=== PATIENT | male | born 1975 | race Caucasian/White ===

== ENCOUNTER 2019-11-27 14:53 | Outpatient (CLI) | payer MEDICARE, SELFPAY | END 2019-11-27 14:54 | disposition home or self-care (01) | LOC: RADWPI 11-28 16:23 | PROVIDERS: PCP Physician Assistant; Visit Provider Specialist | DX: G40.909 Epilepsy, unspecified, not intractable, without status epilepticus (principal); M43.06 Spondylolysis, lumbar region; M51.16 Intervertebral disc disorders with radiculopathy, lumbar region; M54.5 Low back pain; F17.210 Nicotine dependence, cigarettes, uncomplicated | CPT/HCPCS: 95972; 99214 ==

== ENCOUNTER → 2019-12-05 11:15 | Outpatient (BNVA) | payer MEDICARE, SELFPAY | PROVIDERS: PCP Physician Assistant; Visit Provider Psychiatry & Neurology Neurology | DX: G62.9 Polyneuropathy, unspecified (principal); M79.604 Pain in right leg; M79.605 Pain in left leg | CPT/HCPCS: 95886; 95909 ==

== ENCOUNTER 2019-12-12 09:11 | Outpatient (CLI) | payer MEDICARE, SELFPAY ==
--- NOTE | 2019-12-12 09:28 | CT_ITS ---
WS: [id number] CT THORACIC SPINE MYELOGRAM TECHNIQUE: Contrast-enhanced CT of the thoracic spine with coronal and sagittal reformatted images. CLINICAL INFORMATION: Lumbar disc disease with radiculopathy COMPARISON: None. DLP: 1204.[address] scans at [facility] use at least one of these dose optimization techniques: automat ed exposure control; mA and/or kV adjustment per patient size (includes targeted exams where dose is matched to clinical indication); or iterative reconstruction. FINDINGS: Mild thoracic curve convex left. No acute compression fractures. Hypertrophic changes anterior thorac ic spine. Disc space heights and vertebral body heights relatively well-preserved. Mild spondylitic c hanges thoracic spine. Mild chronic anterior wedging at T12. Mild bony foraminal narrowing more prominent at left T3-4, left T5-6, left T6-T7, bilateral T7-8, bilateral T8-9, bilateral T10-11 Tiny shallow central protrusions most prominent at T6-7, T7-8, T8-9, T10-11, and T11-12. Moderate central canal stenosis at T10-11 with a tiny central protrusion in combination with facet ar thropathy and ligamentum flavum hypertrophy. Mild central canal stenosis T8-T9 with a right pericentral protrusion in combination with facet arthr opathy. Mild central canal stenosis T11-12 mainly due to left eccentric facet arthropathy and ligamen t flavum hypertrophy. CT/CT thoracic spine w con [id number] IMPRESSION: 1. Mild lumbar curve convex left. Disc space heights vertebral body heights we ll-preserved. 2. Mild chronic anterior wedging at T12. 3. Moderate central canal stenosis at T10-11 due to tiny central protrusion wi th prominent facet arthropathy ligament flavum hypertrophy. 4. Otherwise mild central canal stenosis more prominent at T8-9 with a right p ericentral protrusion and prominent facet arthropathy and T11-12 mainly due to facet arthropathy with ligament flavum hypertrophy. 5. Mild bony foraminal narrowing worse at bilateral T10-11
--- NOTE | 2019-12-12 09:28 | CT_ITS ---
WS: [id number] CT LUMBAR SPINE MYELOGRAM TECHNIQUE: Contrast-enhanced CT of the lumbar spine with coronal and sagittal reformatted images. CLINICAL INFORMATION: Lumbar disc COMPARISON: None. DLP: 1474.[address] scans at [facility] use at least one of these dose optimization techniques: automat ed exposure control; mA and/or kV adjustment per patient size (includes targeted exams where dose is matched to clinical indication); or iterative reconstruction. FINDINGS: Normal lumbar alignment. No acute compression. Mild hypertrophic changes lumbar spine. Mild disc bulg ing L3-L4 and L4-L5. L1-L2: Normal. L2-L3: No significant disc bulging. Mild facet arthropathy. Spinal canal and foramen are patent. L3-L4: Small broad-based central protrusion with mild central canal stenosis. Foramen are patent. Mil d facet arthropathy. L4-L5: Shallow central disc protrusion with mild central canal stenosis and narrowing of the subartic ular recess bilaterally. Mild facet arthropathy. Mild right foraminal narrowing. L5-S1: Shallow central protrusion with slight effacement of ventral thecal sac. Spinal canal and fora men are patent. Adrenal glands are normal. Normal caliber abdominal aorta. CT/CT lumbar spine w con [id number] IMPRESSION: 1. Normal lumbar alignment. No acute compression. No high-grade central canal stenosis. 2. Shallow central protrusion L4-5 with narrowing of the subarticular recess b ilaterally with mild central canal stenosis. Mild right L4-5 foraminal narrowin g. 3. Shallow central protrusion L5-S1 with slight encroachment traversing right S1 nerve root. 4. Broad-based central protrusion L3-4 with mild central canal stenosis.
--- NOTE | 2019-12-12 09:29 | IR_ITS ---
WS: [id number] MYELOGRAM THORACIC AND LUMBAR SPINE Fluoroscopic guided cervical myelogram CLINICAL INFORMATION: LUMBAR SPONDYLOLYSIS COMPARISON: None. TECHNIQUE: The procedure, including risks, benefits, and complications, were discussed with the patie nt who agreed to proceed. A timeout was performed to confirm correct patient, procedure, and site. Using sterile technique, the patient was prepped and draped in the usual sterile fashion. After admin istration of local anesthesia using 1% preservative-free lidocaine and using fluoroscopic guidance, a 22-gauge 5 inch spinal needle was advanced into the subarachnoid space at L5-S1 level. Subsequently 13 cc of Omnipaque 240 was administered into the thecal sac. The needle was removed and hemostasis wa s achieved. Subsequently the table was tilted down and contrast flowed freely into the thoracic spine . Spot fluoroscopic images were obtained. FLUOROSCOPIC TIME: 1.1 minutes. Partially visualized vagal nerve stimulator. Normal lumbar alignment on the neutral view. No instabil ity on flexion-extension. Mild chronic anterior wedging at T12. Please see CT myelogram report for additional detail. IR/IR myelogram spine thorac/lumb IMPRESSION: 1. Uncomplicated lumbar and thoracic myelogram. 2. Please see CT myelogram report for anatomic detail.
[2019-12-12] MEDS: iohexol 240 mg/mL 50 mL Btl INTRATHECA (10:38)
== END 2019-12-12 09:12 | disposition home or self-care (01) ==
PROVIDERS: PCP Physician Assistant; Visit Provider Specialist
DX: M47.896 Other spondylosis, lumbar region (principal); M48.04 Spinal stenosis, thoracic region; M51.16 Intervertebral disc disorders with radiculopathy, lumbar region; M51.26 Other intervertebral disc displacement, lumbar region
CPT/HCPCS: 62305; 72120; 72129; 72132; J2001

== ENCOUNTER → 2019-12-17 10:20 | Outpatient (BNVA) | payer MEDICARE, SELFPAY | PROVIDERS: PCP Physician Assistant; Referring Provider Specialist; Visit Provider Anesthesiology Pain Medicine | DX: M54.16 Radiculopathy, lumbar region (principal); M51.36 Other intervertebral disc degeneration, lumbar region; F17.210 Nicotine dependence, cigarettes, uncomplicated | CPT/HCPCS: 99203; 99999 ==

== ENCOUNTER 2019-12-25 10:34 | Outpatient (RCR) | payer MEDICARE, SELFPAY | END 2020-01-03 23:00 | disposition home or self-care (01) | LOC: SPT 10:34 | PROVIDERS: PCP Physician Assistant; Referring Provider Family Medicine; Visit Provider Family Medicine | DX: M54.10 Radiculopathy, site unspecified (principal) | CPT/HCPCS: 97110; 97161 ==

== ENCOUNTER 2019-12-25 12:00 | Outpatient (CLI) | payer MEDICARE, SELFPAY | END 2019-12-25 12:01 | disposition home or self-care (01) | LOC: SLEEP 12-26 10:17 | PROVIDERS: PCP Physician Assistant; Visit Provider Physician Assistant | DX: G47.10 Hypersomnia, unspecified (principal) | CPT/HCPCS: G0399 ==

== ENCOUNTER → 2019-12-31 13:10 | Outpatient (BNVA) | payer MEDICARE, SELFPAY | PROVIDERS: PCP Physician Assistant; Visit Provider Anesthesiology Pain Medicine | DX: M51.16 Intervertebral disc disorders with radiculopathy, lumbar region (principal); F17.210 Nicotine dependence, cigarettes, uncomplicated | CPT/HCPCS: 64483; 64484; J1040; J2001; J3490 ==

== ENCOUNTER → 2020-01-14 08:38 | Outpatient (BNVA) | payer MEDICARE, SELFPAY | PROVIDERS: PCP Physician Assistant; Visit Provider Anesthesiology Pain Medicine | DX: M54.16 Radiculopathy, lumbar region (principal); M51.36 Other intervertebral disc degeneration, lumbar region; F17.210 Nicotine dependence, cigarettes, uncomplicated | CPT/HCPCS: 99213 ==

== ENCOUNTER → 2020-02-14 08:56 | Outpatient (BNVA) | payer MEDICARE, SELFPAY | PROVIDERS: PCP Physician Assistant; Visit Provider Anesthesiology Pain Medicine | DX: M51.36 Other intervertebral disc degeneration, lumbar region (principal); M51.16 Intervertebral disc disorders with radiculopathy, lumbar region; M54.9 Dorsalgia, unspecified; F17.210 Nicotine dependence, cigarettes, uncomplicated | CPT/HCPCS: 64483; 64484; J1040; J2001; J3490 ==

== ENCOUNTER → 2020-02-28 10:16 | Outpatient (BNVA) | payer MEDICARE, SELFPAY | PROVIDERS: PCP Physician Assistant; Visit Provider Anesthesiology Pain Medicine | DX: M54.16 Radiculopathy, lumbar region (principal); M51.36 Other intervertebral disc degeneration, lumbar region; M54.9 Dorsalgia, unspecified; M79.652 Pain in left thigh; F17.210 Nicotine dependence, cigarettes, uncomplicated | CPT/HCPCS: 99213 ==

== ENCOUNTER → 2020-04-29 08:59 | Outpatient (BNVA) | payer MEDICARE, SELFPAY | PROVIDERS: PCP Physician Assistant; Visit Provider Specialist | DX: G40.909 Epilepsy, unspecified, not intractable, without status epilepticus (principal); M51.36 Other intervertebral disc degeneration, lumbar region | CPT/HCPCS: 99214 ==

== ENCOUNTER 2020-05-05 10:15 | Outpatient (CLI) | payer MEDICARE, SELFPAY ==
--- NOTE | 2020-05-05 10:21 | XR_ITS ---
WS: [id number] SOFT TISSUE NECK 2 VIEW(S) TECHNIQUE: AP and lateral views of the neck in soft tissue technique are performed. HISTORY: VNS components COMPARISON: 11/16/2017 Significant motion artifact. Vagal nerve stimulator wires project over the inferior LEFT lateral soft tissues of the neck. No change in position. Lead wires are intact. No soft tissue ovale. XR/XR soft tissue neck [id number] IMPRESSION: No change in appearance of the vagal nerve stimulator electrodes over the infer ior LEFT neck.
--- NOTE | 2020-05-05 10:21 | XR_ITS ---
WS: [id number] CHEST 2 VIEWS HISTORY: VNS components COMPARISON: 09/25/2018 Lungs: Clear with no abnormality. No pleural effusion or pneumothorax. Cardiac size: Normal. Mediastinum/Aorta: Normal mediastinum. Bones: Normal. Vagal nerve stimulator projects over the mid LEFT thorax with wires extending towards the LEFT neck. XR/XR chest 2V* [id number] IMPRESSION: No change in position or appearance of the vagal nerve stimulator.
== END 2020-05-05 10:16 | disposition home or self-care (01) ==
LOC: RAD 10:19
PROVIDERS: PCP Physician Assistant; Visit Provider Licensed Practical Nurse
DX: Z96.89 Presence of other specified functional implants (principal)
CPT/HCPCS: 70360; 71046

== ENCOUNTER → 2020-05-12 09:58 | Outpatient (BNVA) | payer MEDICARE, SELFPAY | PROVIDERS: PCP Physician Assistant; Visit Provider Anesthesiology Pain Medicine | DX: M54.16 Radiculopathy, lumbar region (principal); M54.9 Dorsalgia, unspecified; M51.36 Other intervertebral disc degeneration, lumbar region; M79.604 Pain in right leg; M79.605 Pain in left leg; F17.210 Nicotine dependence, cigarettes, uncomplicated | CPT/HCPCS: 99213 ==

== ENCOUNTER → 2020-05-21 13:46 | Outpatient (BNVA) | payer MEDICARE, SELFPAY | PROVIDERS: PCP Physician Assistant; Visit Provider Anesthesiology Pain Medicine | DX: M54.16 Radiculopathy, lumbar region (principal); M51.36 Other intervertebral disc degeneration, lumbar region; M54.9 Dorsalgia, unspecified; F17.210 Nicotine dependence, cigarettes, uncomplicated | CPT/HCPCS: 64483; 64484; J1040; J3490 ==

== ENCOUNTER → 2020-06-05 09:40 | Outpatient (BNVA) | payer MEDICARE, SELFPAY | PROVIDERS: PCP Physician Assistant; Visit Provider Anesthesiology Pain Medicine | DX: M51.36 Other intervertebral disc degeneration, lumbar region (principal); M54.16 Radiculopathy, lumbar region; M54.9 Dorsalgia, unspecified; M79.605 Pain in left leg; M79.604 Pain in right leg; F17.210 Nicotine dependence, cigarettes, uncomplicated; Z79.891 Long term (current) use of opiate analgesic | CPT/HCPCS: 99213 ==

== ENCOUNTER → 2020-08-18 08:58 | Outpatient (BNVA) | payer MEDICARE, SELFPAY | PROVIDERS: PCP Physician Assistant; Visit Provider Anesthesiology Pain Medicine | DX: M54.16 Radiculopathy, lumbar region (principal); M51.36 Other intervertebral disc degeneration, lumbar region; M54.9 Dorsalgia, unspecified; F17.210 Nicotine dependence, cigarettes, uncomplicated | CPT/HCPCS: 99213; 99214 ==

== ENCOUNTER → 2020-08-25 12:44 | Outpatient (BNVA) | payer MEDICARE, SELFPAY | PROVIDERS: PCP Physician Assistant; Visit Provider Anesthesiology Pain Medicine | DX: M54.16 Radiculopathy, lumbar region (principal); M54.9 Dorsalgia, unspecified; F17.210 Nicotine dependence, cigarettes, uncomplicated | CPT/HCPCS: 64483; 64484; J1100; J3490 ==

== ENCOUNTER → 2020-09-09 10:22 | Outpatient (BNVA) | payer MEDICARE, SELFPAY | PROVIDERS: PCP Physician Assistant; Visit Provider Anesthesiology Pain Medicine | DX: M79.605 Pain in left leg (principal); M51.36 Other intervertebral disc degeneration, lumbar region; M54.16 Radiculopathy, lumbar region; M54.9 Dorsalgia, unspecified; F17.210 Nicotine dependence, cigarettes, uncomplicated | CPT/HCPCS: 99213 ==

== ENCOUNTER → 2020-11-05 08:06 | Outpatient (BNVA) | payer MEDICARE, SELFPAY | PROVIDERS: PCP Physician Assistant; Visit Provider Specialist | DX: G40.109 Localization-related (focal) (partial) symptomatic epilepsy and epileptic syndromes with simple partial seizures, not intractable, without status epilepticus (principal); G40.909 Epilepsy, unspecified, not intractable, without status epilepticus; Z96.89 Presence of other specified functional implants; M51.16 Intervertebral disc disorders with radiculopathy, lumbar region; F17.210 Nicotine dependence, cigarettes, uncomplicated | CPT/HCPCS: 95971; 99213 ==

== ENCOUNTER → 2021-02-10 08:58 | Outpatient (BNVA) | payer MEDICARE, SELFPAY | PROVIDERS: PCP Physician Assistant; Visit Provider Anesthesiology Pain Medicine | DX: G89.29 Other chronic pain (principal); M54.42 Lumbago with sciatica, left side; M51.36 Other intervertebral disc degeneration, lumbar region; M54.16 Radiculopathy, lumbar region; M54.9 Dorsalgia, unspecified; F17.210 Nicotine dependence, cigarettes, uncomplicated | CPT/HCPCS: 99214 ==

== ENCOUNTER → 2021-04-28 07:50 | Outpatient (BNVA) | payer MEDICARE, SELFPAY | PROVIDERS: PCP Physician Assistant; Visit Provider Specialist | DX: G40.119 Localization-related (focal) (partial) symptomatic epilepsy and epileptic syndromes with simple partial seizures, intractable, without status epilepticus (principal); G40.319 Generalized idiopathic epilepsy and epileptic syndromes, intractable, without status epilepticus; M51.16 Intervertebral disc disorders with radiculopathy, lumbar region; Z96.82 Presence of neurostimulator; F17.210 Nicotine dependence, cigarettes, uncomplicated | CPT/HCPCS: 95971; 99214 ==

== ENCOUNTER 2021-04-28 09:35 | Outpatient (CLI) | payer MEDICARE, SELFPAY ==
--- NOTE | 2021-04-28 09:45 | XRR_ITS ---
PROCEDURE INFORMATION: Exam: XR Cervical Spine Exam date and time: 04/28/2021 9:45 AM Age: 45 years old Clinical indication: Pain; Cervicalgia; Additional info: M54.2 - cervicalgia TECHNIQUE: Imaging protocol: XR of the cervical spine. Views: 2 or 3 views. COMPARISON: CR Cervical Spine AP/Lat* [id number] 09/08/2015 11:28 AM FINDINGS: Bones/joints: Mild dextrocurvature of the cervical spine is present. There is slight straightening of the normal cervical lordosis, without listhesis. No fracture seen. Vertebral body heights are well maintained. There is multilevel degenerative changes, manifested by intervertebral disc space narrowing, endplate osteophytes and facet joint arthrosis. Soft tissues: Electrodes project over the left lower neck. XR/XR cervical spine 3V* [id number] IMPRESSION: Degenerative changes of the cervical spine.
== END 2021-04-28 09:36 | disposition home or self-care (01) ==
LOC: RAD 09:42
PROVIDERS: PCP Physician Assistant; Visit Provider Specialist
DX: M54.2 Cervicalgia (principal); R56.9 Unspecified convulsions
CPT/HCPCS: 36415; 72040; 80175; 87635

== ENCOUNTER 2021-05-04 08:12 | Day surgery (SDC) | payer MEDICARE, SELFPAY ==
[2021-05-01 07:57] VITALS: BMI 35.1
--- NOTE | 2021-05-04 08:31 | ANES.PREANE2 ---
Pre-Anesthetic Assessment Pre-Anesthetic Assessment: Height/Weight: Height 1.85 m Weight 120.656 kg Preop Diagnosis: polyps Proposed Procedure: Operation Date: 05/04/21 09:15 Proposed Procedures p Colonoscopy G0105 Z86.010(Not Applicable) - Sherwin Chin MD Familial anesthetic complications: none Was Beta Marla taken within 24 hours: N/A Was Clonidine taken within 24 hours: N/A Last intake: > 8 hrs Social: Social History: Tobacco and No alcohol Exam: Pre-Anes Outpt Exam: alert, oriented x 3, clear to auscultation bilaterally and regular rate & rhythm Airway: Cervical ROM: WNL MP: 2 Dentition: Chipped and Other (missing) Metabolic: Metabolic: DM Musc/skel: Musc/skel: Lower Back Pain Neuropsych: Neuropsych: Seizure Comments: VNS implant for eplilepsy - last seizure 2 days ago - most are abscence seizures Anesthetic Plan: ASA status: 3 Anesthesia: MAC Risk of > 500 ml blood loss (7ml/kg in children): No PFSH Anesthesia PFSH: Medical History Degenerative lumbar disc Partial epilepsy secondarily generalized Surgical History History of brain surgery partial temporal lobectomy, right side Status post placement of VNS (vagus nerve stimulation) device Family History Mother CAD (coronary artery disease) Sister Cancer Grandfather Cancer Family/Other Cancer Father Diabetes Hypertension Social History Smoking and tobacco status: current every day smoker cigarettes Packs smoked per day: 1 [ Other cigarette details: DOWN FROM 2PPD - DUE TO DECREASED PAIN PER PATIENT REPORT ] Alcohol intake: never Household members: spouse Marital status: Current occupational status: disabled History of recent travel: No Data Anesthesia Cardiac Studies: No Data to Display
[2021-05-04 09:05] VITALS: BP 129/75; PULSE 78; RESP 18; TEMP 36.4; O2SAT 97
--- NOTE | 2021-05-04 09:17 | P.HP_ITS ---
Same Day Surgery H&P Indication for Procedure/HPI DATE OF PROCEDURE: May 04, 2021 CHIEF COMPLAINT/INDICATIONFOR SURGICAL PROCEDURE: Family history of colon cancer PREOP DIAGNOSIS: FH PLANNED PROCEDRUE: Operation Date: 05/04/21 09:15 Proposed Procedures p Colonoscopy G0105 Z86.010(Not Applicable) - Sherwin Chin MD Medications/Allergies* Home Medications Medication Instructions Recorded Confirmed Type pravastatin 80 mg tablet 80 mg PO DAILY 11/27/19 05/04/21 History venlafaxine 150 mg 150 mg PO DAILY 11/27/19 05/04/21 History capsule,extended release 24 hr acetaminophen 650 mg 650 mg PO Q8H 08/18/20 05/04/21 History tablet,extended release venlafaxine 37.5 mg tablet 37.5 mg PO BID 09/09/20 05/04/21 History levetiracetam 500 mg tablet 500 mg PO BID 02/10/21 05/04/21 History cyanocobalamin (vitamin B-12) 1,000 mcg PO DAILY 04/15/21 05/04/21 History 1,000 mcg capsule cholecalciferol (vitamin D3) 1,250 1,250 mcg PO .weekly cap 04/28/21 05/04/21 History mcg (50,000 unit) capsule Allergies/Adverse Reactions Allergy/AdvReac Type Severity Reaction Status Date / Time No Known Allergies Allergy Verified 04/28/21 08:08 Pertinent History/Comorbid Conditions* Medical History (Updated 04/15/21 @ 14:47 by Sherwin Chin MD) Degenerative lumbar disc Partial epilepsy secondarily generalized Surgical History (Updated 11/05/20 @ 09:28 by Carline Shin MD) History of brain surgery partial temporal lobectomy, right side Status post placement of VNS (vagus nerve stimulation) device Family History (Updated 05/05/20 @ 09:11 by Jackelyn Cannon LPN) Diabetes Father CAD (coronary artery disease) Mother Cancer Sister Grandfather Family/Other Hypertension Father Social History Smoking and tobacco status: current every day smoker cigarettes Packs smoked per day: 1 [ Other cigarette details: DOWN FROM 2PPD - DUE TO DECREASED PAIN PER PATIENT REPORT ] Alcohol intake: never Household members: spouse Marital status: Current occupational status: disabled History of recent travel: No Pertinent Exam Findings alert, oriented x 3, clear to auscultation bilaterally, regular rate & rhythm, operative site marked and procedure specific exam findings Recommendations Surgery/Procedure today Coding Level of Care Code Acute 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
[2021-05-04] MEDS: sodium chloride 0.9% 1,000 ML 30 ML IV (09:29)
[2021-05-04 09:32] LABS: Glucose Point of Care 86 mg/dL (70-110)
[2021-05-04 10:02] VITALS: BP 89/51; PULSE 60; RESP 16; TEMP 36.1; O2SAT 97
--- NOTE | 2021-05-04 10:07 | ANE.PACU2 ---
Inpatient post-anesthesia follow up: Airway intact: Yes Vital signs: Temperature 97.6 F Pulse Rate 78 Respiratory Rate 18 Blood Pressure 129/75 Pulse Oximetry 97 Oxygen Delivery Me thod Room Air Oxygen Flow Rate Fraction of Inspir ed Oxygen Hydration adequate: Yes Nausea and vomiting: No Pain level: 1 Mental status: Baseline
== END 2021-05-04 10:50 | disposition home or self-care (01) ==
PROVIDERS: PCP Physician Assistant; Visit Provider Internal Medicine
PROC: 0DJD8ZZ Inspection of Lower Intestinal Tract, Via Natural or Artificial Opening Endoscopic (ICD-10-PCS; CPT 45378; principal; 2021-05-04 09:15)
DX: Z86.010 Personal history of colon polyps (principal); F17.210 Nicotine dependence, cigarettes, uncomplicated; E11.9 Type 2 diabetes mellitus without complications
CPT/HCPCS: 36416; 45378; 82962; 96360; J2704; J7030

== ENCOUNTER → 2021-08-04 08:24 | Outpatient (BNVA) | payer MEDICARE, SELFPAY | PROVIDERS: PCP Physician Assistant; Visit Provider Psychiatry & Neurology Psychiatry | DX: F33.2 Major depressive disorder, recurrent severe without psychotic features (principal); F41.1 Generalized anxiety disorder | CPT/HCPCS: 80053; 84443; 85025; 99204 ==

== ENCOUNTER → 2021-09-15 12:18 | Outpatient (BNVA) | payer MEDICARE, SELFPAY | PROVIDERS: PCP Physician Assistant; Visit Provider Psychiatry & Neurology Psychiatry | DX: F33.2 Major depressive disorder, recurrent severe without psychotic features (principal); F41.1 Generalized anxiety disorder | CPT/HCPCS: 99214 ==

== ENCOUNTER → 2022-06-01 14:53 | Outpatient (BNVA) | payer MEDICARE, SELFPAY | PROVIDERS: PCP Physician Assistant; Visit Provider Specialist | DX: R26.81 Unsteadiness on feet (principal); Z96.82 Presence of neurostimulator; G40.109 Localization-related (focal) (partial) symptomatic epilepsy and epileptic syndromes with simple partial seizures, not intractable, without status epilepticus | CPT/HCPCS: 99214 ==

== ENCOUNTER → 2022-09-13 08:04 | Outpatient (BNVA) | payer MEDICARE, SELFPAY | PROVIDERS: PCP Physician Assistant; Visit Provider Podiatrist Foot & Ankle Surgery | DX: Q82.8 Other specified congenital malformations of skin (principal); B07.0 Plantar wart; G62.9 Polyneuropathy, unspecified | CPT/HCPCS: 17110; 99203 ==

== ENCOUNTER 2022-09-29 16:49 | Observation (INO) | payer MEDICARE, SELFPAY ==
[2022-09-29 16:54] VITALS: BP 133/70; PULSE 100; RESP 16; TEMP 37.9; O2SAT 91; BMI 35.1
[2022-09-29 16:59] VITALS: PULSE 86; O2SAT 91
--- NOTE | 2022-09-29 19:10 | XRR_ITS ---
PROCEDURE INFORMATION: Exam: XR Chest Exam date and time: 09/29/2022 7:45 PM Age: 47 years old Clinical indication: Shortness of breath; Prior surgery; Surgery date: Post-operative (0-2 days); Additional info: SOB TECHNIQUE: Imaging protocol: Radiologic exam of the chest. Views: 1 view. COMPARISON: CR XR chest 2V* [id number] 05/05/2020 10:30 AM FINDINGS: Tubes, catheters and devices: Left vagus nerve stimulator, unchanged. Lungs: No consolidative pulmonary infiltrate noted. Pleural spaces: No pleural effusion. No pneumothorax. Heart/Mediastinum: No cardiomegaly. Bones/joints: Unremarkable. XR/XR chest 1V portable [id number] IMPRESSION: 1. No acute abnormality demonstrated. 2. There is no interval change from the prior examination.
[2022-09-29] MEDS: acetaminophen 500 mg Tablet 1000 MG PO (20:50)
[2022-09-29 20:51] VITALS: O2SAT 93
--- NOTE | 2022-09-29 21:05 | ED_ITS ---
HPI - COVID General: Chief Complaint: COVID symptoms Stated Complaint: Sent from for low O2 Time Seen by Provider: 09/29/22 20:20 Source: patient, family and old records reviewed Mode of arrival: ambulatory Limitations: no limitations History of Present Illness: Patient presents to the emergency department today after being sent from an outlying clinic for low oxygen readings. Patient reports he has been ill for a while now and symptoms seem to be getting worse and not better. He was told that his oxygen readings were in the mid to upper 80s at his initial evaluation which he indicates is why he was sent over. Patient complains of sore throat, headache, nasal congestion, bilateral ear pain . Patient especially notes his ear pain as a site of great discomfort at this time. He reports his cough is forceful and he is getting frothy sputum. Patient was unaware of any fevers at home. Patient does have a history of COPD per his report and has an albuterol inhaler. Patient has a history of epilepsy and chart review indicates a baseline difficulty with ambulation and dizziness. COVID 19 common symptoms: positive productive cough, dyspnea, throat pain and nasal congestion COVID Results: SARS-CoV-2 Antigen (Rapid) Negative (Negative) 09/29/22 20:43 Nasal/Oral Coronavirus 2019 PCR Not detected 04/28/21 10:55 Review of Systems General: Reports: 10 or more systems reviewed and unremarkable except in HPI and below ENMT: Reports: throat pain, odynophagia, ear or mastoid pain, change in hearing, nasal discharge and nasal congestion Resp: Reports: dyspnea, productive cough and chest congestion [facility] ED PFSH: Medical History Degenerative lumbar disc Partial epilepsy secondarily generalized Psychiatric care Surgical History History of brain surgery partial temporal lobectomy, right side Status post placement of VNS (vagus nerve stimulation) device Family History Mother CAD (coronary artery disease) Sister Cancer Grandfather Cancer Family/Other Cancer Father Diabetes Hypertension Social History Smoking and tobacco status: current every day smoker (1 PPD) cigarettes Packs smoked per day: 1.5 Years cigarettes smoked: 31 [ Other cigarette details: DOWN FROM 2PPD - DUE TO DECREASED PAIN PER PATIENT REPORT] Quit status (tobacco): has tried quititng Number of times tried to quit tobacco: 6 Second hand smoke exposure: No Smoking risk assessment/counseling performed?: No Alcohol intake: never Desire information about alcohol rehabilitation?: No Counseling given: No Desire information about substance/drug rehabilitation?: No Counseling given: No Household members: spouse Marital status: Current occupational status: disabled History of recent travel: No Physical Exam Const: OTHER: Patient is pleasant and social but is obviously not feeling well. He is alert and oriented. Patient with low-grade fever. All other vital signs stable. HENMT: OTHER: Patient has nasal congestion and rhinorrhea noted bilaterally with erythematous and boggy turbinates. Pharynx is minimally erythematous and no signs of exudate. Airway is patent and mucous membranes are moist. Patient has significant bilateral ear infections with large amounts of purulent material behind the eardrums without signs of current rupture. Eye: COMMON NORMALS: Equal, round and reactive pupils present, EOMs intact bilaterally and conjunctivae normal CONJUNCTIVA: Yes conjunctivae normal PUPIL: Yes Equal, round and reactive pupils present Neck/C-Spine: COMMON NORMALS: no JVD Lymph: LYMPHATIC: no lymphadenopathy noted Resp: OTHER: Patient has diffuse rhonchi across bilateral lung lloyd. Patient has some faint expiratory wheezing-left more than right. Patient is breathing hard but shows no signs of accessory muscle use. Patient is currently on 2 L by nasal cannula with an O2 of 93%. Cardio: COMMON NORMALS: no JVD, regular rate and regular rhythm RATE: regular rate RHYTHM: regular rhythm : COMMON NORMALS: Yes no CVA tenderness BLADDER/KIDNEY EXAM: Yes no CVA tenderness Back/Pelvis: COMMON NORMALS: no CVA tenderness and thoraco-lumbar ROM normal Extremity: COMMON NORMALS: normal to inspection, full ROM and no clubbing, cyanosis or edema Psych: COMMON NORMALS: mental status grossly normal, Normal thought process present, cooperative, speech normal and activity/motor behavior normal SPEECH: Yes normal speech THOUGHT PROCESS: Normal thought process present Course Vital Signs: Vital signs: Vital Signs Temperature 100.2 F H 09/29/22 16:54 Pulse Rate 69 09/30/22 00:00 Respiratory Rate 20 H 09/30/22 00:00 Blood Pressure 117/63 09/30/22 00:00 Pulse Oximetry 91 09/30/22 00:00 Oxygen Delivery Me thod 09/29/22 23:44 Oxygen Flow Rate 2 09/29/22 22:00 MDM - COVID Medical Decision Making Patient presented to the emergency department today for evaluation treatment of hypoxia. Patient does not typically have issues with hypoxia and does not use oxygen at home though he is a smoker and has COPD. Patient has been sick for over a week and is not getting any better. He did present with a low-grade fever today. He has other complaints concerning for either COVID or influenza however, his swabs were negative today. Patient's physical examination was concerning for significant bilateral otitis media in addition to generalized coarse rhonchi throughout both lung lloyd with associated wheezing. Discussed case with Dr. Mathis who agrees to a course here in the emergency department involving DuoNeb treatment, blood work, IV administration of doxycycline, and the potential for inpatient admission. We did discuss this with the patient and at bedside regarding treatment plan and possibility of admission. Both admitted that if necessary, they were willing. Patient's lab work shows a slightly elevated white blood cell count but no signs of elevated lactic however, we did obtain blood cultures prior to administering any IV antibiotics. We attempted to wean the patient off of his oxygen after his nebulizer treatment however, patient's oxygen dropped down to 84% and oxygen had to be put back on. I spoke with Dr. Mathis regarding the patient's inability to come off of oxygen and it was recommended that he be admitted to the hospital. I was able to speak with the hospitalist who agreed to admission. Dr. Mathis was nice enough to place admission orders on behalf of this patient. Differential Diagnosis Likely COVID 19, influenza, other viral infection, bacterial infection, pneumonia, copd exacerbation, CHF exacerbation and other (Pleurisy, pulmonary effusion, sepsis) Lab Data 09/29/22 21:51 09/29/22 21:51 Radiology Impressions Chest X-Ray 09/29/22 19:10 IMPRESSION: 1. No acute abnormality demonstrated. 2. There is no interval change from the prior examination. Laboratory Results WBC 13.7 10^3/uL (4.0-10.0) H 09/29/22 21:51 RBC 4.08 10^6/uL (4.1-5.3) L 09/29/22 21:51 Hgb 12.9 g/dL (11.7-16.6) 09/29/22 21:51 Hct 40.5 % (42.0-52.0) L 09/29/22 21:51 MCV 99.3 fl (80-94) H 09/29/22 21:51 MCH 31.6 pg (28.0-34.0) 09/29/22 21:51 MCHC 31.9 g/dL (30.0-36.0) 09/29/22 21:51 RDW 13.9 % (12.1-15.1) 09/29/22 21:51 Plt Count 292 10^3/cmm (130-400) 09/29/22 21:51 MPV 9.3 fL (7.4-10.4) 09/29/22 21:51 Sodium 134 mmol/L (136-145) L 09/29/22 21:51 Potassium 3.7 mmol/L (3.5-5.1) 09/29/22 21:51 Chloride 100 mmol/L (98-107) 09/29/22 21:51 Carbon Dioxide 22 mmol/L (22-29) 09/29/22 21:51 Anion Gap 15.7 (5-19) 09/29/22 21:51 BUN 10 mg/dL (6-20) 09/29/22 21:51 Creatinine 0.9 mg/dL (0.7-1.2) 09/29/22 21:51 GFR Calculation 90.8 mL/min (90-130) 09/29/22 21:51 Glucose 100 mg/dL (65-115) 09/29/22 21:51 Calculated Osmolality 277 mOsm/kg (285-295) L 09/29/22 21:51 Lactic Acid 0.6 mmol/L (0.5-2.2) 09/29/22 21:51 Calcium 8.6 mg/dL (8.5-10.5) 09/29/22 21:51 Total Bilirubin 0.5 mg/dL (0.15-1.2) 09/29/22 21:51 AST 10 U/L (0-40) 09/29/22 21:51 ALT 8 U/L (0-41) 09/29/22 21:51 Alkaline Phosphatase 94 U/L (40-130) 09/29/22 21:51 Total Protein 6.9 g/dL (6.6-8.7) 09/29/22 21:51 Albumin 3.3 g/dL (3.5-5.2) L 09/29/22 21:51 Globulin 3.6 g/dL (1.3-4.6) 09/29/22 21:51 Influenza Type A Ag negative (Negative) 09/29/22 20:43 Influenza Type B Ag negative (Negative) 09/29/22 20:43 SARS-CoV-2 Ag (Rapid) Negative (Negative) 09/29/22 20:43 SARS-CoV-2 Antigen (Rapid) Negative (Negative) 09/29/22 20:43 Nasal/Oral Coronavirus 2019 PCR Not detected 04/28/21 10:55 Discharge Plan Discharge Condition: Stable Prescriptions: No Action acetaminophen [Tylenol 8 Hour] 650 mg tablet extended release 650 mg PO Q8H PRN (Reason: fever or pain) cyanocobalamin (vitamin B-12) 1,000 mcg capsule 2,000 mcg PO DAILY cholecalciferol (vitamin D3) 1,250 mcg (50,000 unit) capsule 1,250 mcg PO DAILY gabapentin 800 mg tablet 800 mg PO TID Qty: 270 3RF albuterol sulfate 90 mcg/actuation HFA aerosol inhaler 2 puff inhalation QID duloxetine 60 mg capsule,delayed release(DR/EC) 60 mg PO DAILY Qty: 30 2RF buspirone 10 mg tablet 20 mg PO BID Qty: 120 0RF cenobamate 200 mg tablet 400 mg PO DAILY Qty: 60 3RF Rx Instructions: Take 2 tablets once daily. clonazepam [Klonopin] 1 mg tablet 1 mg PO BID Qty: 60 5RF lamotrigine 150 mg tablet See Rx Instructions .ROUTE .COMPLEX Qty: 120 3RF Dose Instruction: Take 2 tablets by mouth twice daily Rx Instructions: Take 2 tablets by mouth twice daily zonisamide [Zonegran] 100 mg capsule 700 mg PO DAILY Qty: 210 5RF Referrals: Sonal Underwood PA [Primary Care Provider] - Coding Level of Care Code ED Banking Consultant for g Fwd Exam Comprehensive
[2022-09-29 21:10] LABS: Influenza A by IFA negative (Negative); Influenza B by IFA negative (Negative)
[2022-09-29 21:21] LABS: SARS Covid-2 Antigen Negative (Negative)
[2022-09-29] MEDS: doxycycline 100 MG in sodium chloride 0.9% (plus) 100 ML IV (21:57)
[2022-09-29 22:00] VITALS: BP 143/65; PULSE 84; RESP 20; O2SAT 90
[2022-09-29] MEDS: ipratropium-albuterol 3 mL Neb INHALATION (22:04)
[2022-09-29 22:22] LABS: Hematocrit 40.5 % (42.0-52.0); Hemoglobin 12.9 g/dL (11.7-16.6); Mean Corpuscular HGB Conc 31.9 g/dL (30.0-36.0); Mean Corpuscular Hemoglobin 31.6 pg (28.0-34.0); Mean Corpuscular Volume 99.3 fl (80-94); Mean Platelet Volume 9.3 fL (7.4-10.4); Platelet Count 292 10^3/cmm (130-400); Red Blood Count 4.08 10^6/uL (4.1-5.3); Red Cell Distribution Width 13.9 % (12.1-15.1); White Blood Count 13.7 10^3/uL (4.0-10.0)
[2022-09-29 22:37] LABS: Alanine Aminotransferase 8 U/L (0-41); Albumin Level 3.3 g/dL (3.5-5.2); Alkaline Phosphatase 94 U/L (40-130); Anion Gap 15.7 (5-19); Aspartate Amino Transferase 10 U/L (0-40); Blood Urea Nitrogen 10 mg/dL (6-20); Calcium 8.6 mg/dL (8.5-10.5); Carbon Dioxide 22 mmol/L (22-29); Chloride 100 mmol/L (98-107); Globulin 3.6 g/dL (1.3-4.6); Glomerular Filtration Rate 90.8 mL/min (90-130); Glucose 100 mg/dL (65-115); Osmolality Calculated 277 mOsm/kg (285-295); Potassium 3.7 mmol/L (3.5-5.1); Sodium 134 mmol/L (136-145); Total Bilirubin 0.5 mg/dL (0.15-1.2); Total Protein 6.9 g/dL (6.6-8.7)
[2022-09-29 22:40] LABS: Lactic Sepsis W/Reflex 0.6 mmol/L (0.5-2.2)
[2022-09-29 22:59] VITALS: BP 131/64; PULSE 75; RESP 18; O2SAT 90
[2022-09-29 23:44] VITALS: O2SAT 84
--- NOTE | 2022-09-29 23:45 | PC.NURSE ---
Pt taken off nasal cannula to see how SpO2 did on room air. Pt's sats dropped to 84. 2L nasal cannula applied again. notified
--- NOTE | 2022-09-29 23:58 | P.HP_ITS ---
Providers/Chief Complaint Primary Care Provider: Sonal Underwood Chief Complaint: Sent from for low O2 History of Present Illness Anders Parisi is a 47 year old male with history of smoking, not oxygen dependent COPD, presented with chief complaint of hypoxia. Patient is stating that he thought he suffered with COVID-19 infection because for last 1 week he has been expensing shortness of breath on exertion and now it was not worse to the point he is experiencing at rest he has not not noticed fever but endorsing hot flashes. Patient smokes 2 packs of cigarettes on daily basis. Drinks occasionally. He has not noticed any vomiting, chest pain or diarrhea. In The ER he is requiring 2 L of oxygen, chest x-ray shows bronchitis related changes no active signs of pneumonia Patient was actively wheezing required breathing regimen and steroid Review of Systems Const: Reports: chills, body aches and fatigue Eyes: Denies: change in vision ENMT: Denies: throat pain Card: Reports: dyspnea on exertion and orthopnea Resp: Reports: dyspnea and non-productive cough GI: Denies: abdominal pain : Denies: flank pain Musc: Denies: neck pain Skin/Breast: Denies: rash Neuro: Denies: headache(s) Psych: Reports: anxiety Endo: Denies: polyuria Bharath/Lymph: Denies: easy bruising All/Imm: Denies: urticaria Medications/Allergies Home Medications Medication Instructions Recorded Confirmed Last Taken Type gabapentin 800 mg tablet 800 mg PO TID #270 tabs 02/10/21 09/17/22 05/04/21 Rx cholecalciferol (vitamin D3) 1,250 1,250 mcg PO DAILY 08/04/21 09/17/22 Unknown History mcg (50,000 unit) capsule cyanocobalamin (vitamin B-12) 2,000 mcg PO DAILY 08/04/21 09/17/22 Unknown History 1,000 mcg capsule albuterol sulfate 90 mcg/actuation 2 puff inhalation QID 01/11/22 09/17/22 Unkno wn History aerosol inhaler acetaminophen 650 mg 650 mg PO Q8H PRN fever or pain 04/27/22 09/17/22 Unknown History tablet,extended release (Tylenol 8 Hour) cenobamate 200 mg tablet 400 mg PO DAILY #60 tabs 05/11/22 09/17/22 Unknown Rx clonazepam 1 mg tablet (Klonopin) 1 mg PO BID #60 tabs 05/18/22 09/17/22 Unknown Rx lamotrigine 150 mg tablet See Rx Instructions .Route 08/11/22 09/17/22 Unknown Rx .COMPLEX #120 tabs zonisamide 100 mg capsule 700 mg PO DAILY #210 caps 09/15/22 09/17/22 Unknown Rx (Zonegran) buspirone 10 mg tablet 20 mg PO BID #120 tabs 09/17/22 09/17/22 Unknown Rx duloxetine 60 mg capsule,delayed 60 mg PO DAILY #30 caps 09/17/22 09/17/22 Unknown Rx release Allergies Allergy/AdvReac Type Severity Reaction Status Date / Time No Known Allergies Allergy Verified 09/17/22 12:55 PFSH Acute PFSH: Medical History Degenerative lumbar disc Partial epilepsy secondarily generalized Psychiatric care Surgical History History of brain surgery partial temporal lobectomy, right side Status post placement of VNS (vagus nerve stimulation) device Family History Mother CAD (coronary artery disease) Sister Cancer Grandfather Cancer Family/Other Cancer Father Diabetes Hypertension Social History Smoking and tobacco status: current every day smoker (1 PPD) cigarettes Packs smoked per day: 1.5 Years cigarettes smoked: 31 [ Other cigarette details: DOWN FROM 2PPD - DUE TO DECREASED PAIN PER PATIENT REPORT] Quit status (tobacco): has tried quititng Number of times tried to quit t obacco: 6 Second hand smoke exposure: No Smoking risk assessment/counseling performed?: No Alcohol intake: never Desire information about alcohol rehabilitation?: No Counseling given: No Desire information about substance/drug rehabilitation?: No Counseling given: No Household members: spouse Marital status: Current occupational status: disabled History of recent travel: No Vitals/I&O/Wt Last Vital Signs Temp 100.2 F H 09/29/22 16:54 Pulse 86 09/29/22 16:59 Resp 16 09/29/22 16:54 BP 133/70 09/29/22 16:54 Pulse Ox 84 L 09/29/22 23:44 O2 Del Method 09/29/22 23:44 O2 Flow Rate 2 09/29/22 20:51 09/29/22 09/29/22 09/30/22 14:59 22:59 06:59 Intake Total 100 / 100 Balance 100 / 100 Weight last 48 hrs Weight 120.656 kg Physical Exam Narrative: Patient is laying supine Currently on 2 L No active wheezing Awake and alert No active respiratory distress S1, S2 Abdomen soft Nonfocal neuro exam Flat affect No sign of cellulitis No audible stridor Data 09/29/22 21:51 09/29/22 21:51 Micro: Microbiology 09/29/22 22:10 Blood Culture - Preliminary Blood SPECIMEN COLLECTED 09/29/22 22:16 Blood Culture - Preliminary Blood SPECIMEN COLLECTED A&P Assessment and plan (1) COPD exacerbation: (2) Hypoxia: Plan Bronchitis related COPD exacerbation Currently requiring 2 L of oxygen which is new requirement Wean oxygen to room air, add azithromycin for anti-inflammatory effect DuoNeb treatment along steroids Wheezing has improved I would check COVID PCR instead of antigen Check D-dimer Patient is endorsing to marijuana Smokes 2 packs of cigarettes daily basis History of seizure continue antiepileptics, hold BuSpar Cardiac diet DVT prophylaxis on board Full code Attestations Medical Necessity Statement*: Anticipating discharge within 48 hours Time Spent in Patient Care: 40 Coding Level of Care Code Acute Ramp Flight Attendant for [facility]ray Diagnoses COPD exacerbation J44.1 Hypoxia R09.02
[2022-09-30] VITALS (13 sets, daily range): BP systolic 96–145; BP diastolic 38–92; PULSE 56–72; RESP 16–20; TEMP 36.1–37.1; O2SAT 91–98
[2022-09-30 02:25] LABS: D Dimer 0.38 ug/mIFEU (0-0.59); Total Cells Counted 100 (0-100)
[2022-09-30 02:27] LABS: Segmented Neutrophils 73 %
[2022-09-30 02:28] LABS: Eosinophils 0 %; Lymphocytes 16 %; Lymphocytes Absolute 2.3 10^3/cmm (1.2-3.4); Monocytes Absolute 1.2 10^3/cmm (0.1-0.6); Platelet Estimate Normal (Normal)
[2022-09-30 02:41] LABS: Procalcitonin 0.19 ng/mL (0-0.5)
[2022-09-30 04:35] LABS: Adenovirus Not Detected (NOT DETECT); Chlamydia Pneumoniae Not Detected (NOT DETECT); Coronavirus 229E,HKU1,NL63,OC4 Not Detected (NOT DETECT); Human Metapneumovirus Not Detected (NOT DETECT); Human Rhinovirus/Enterovirus Not Detected (NOT DETECT); Influenza A Not Detected (NOT DETECT); Influenza A H1 Not Detected (NOT DETECT); Influenza A H1-2009 Not Detected (NOT DETECT); Influenza A H3 Not Detected (NOT DETECT); Influenza B Not Detected (NOT DETECT); Mycoplasma Pneumoniae Not Detected (NOT DETECT); Parainfluenza Virus Type 1 Not Detected (NOT DETECT); Parainfluenza Virus Type 2 Not Detected (NOT DETECT); Parainfluenza Virus Type 3 Not Detected (NOT DETECT); Parainfluenza Virus Type 4 Not Detected (NOT DETECT); Respiratory Syncytial Virus A Not Detected (NOT DETECT); Respiratory Syncytial Virus B Not Detected (NOT DETECT); SARS-COV-2 Not Detected (NOT DETECT)
[2022-09-30 06:05] LABS: Vitamin B12 338 pg/mL (232-1245)
--- NOTE | 2022-09-30 09:24 | CT_ITS ---
WS: [id number] CTA OF THE CHEST WITH PULMONARY EMBOLISM PROTOCOL TECHNIQUE: High-resolution contrast enhanced CTA of the chest with coronal and sagittal reformatted i renees with pulmonary embolism protocol. MIP images are also reviewed. CLINICAL INFORMATION: sob COMPARISON: None. DLP: 499.[address] scans at [facility] use at least one of these dose optimization techniques: automated e xposure control; mA and/or kV adjustment per patient size (includes targeted exams where dose is matc hed to clinical indication); or iterative reconstruction. FINDINGS: Proximal main pulmonary arteries are normal. Normal segmental and subsegmental pulmonary arteries. No evidence of pulmonary embolus. Normal caliber thoracic aorta. Prominent mediastinal and peribronchial lymph nodes nonspecific but li isamar reactive. Prominent RIGHT hilar lymph nodes. No axillary lymphadenopathy. Patchy nodular infiltrates in the RIGHT upper lobe anteriorly with a tree-in-bud configuration and li isamar infectious or inflammatory. Additional tree-in-bud infiltrates in the RIGHT greater than LEFT lo wer lobes. A few patchy opacities in the LEFT upper lobe. CT/CT angio chest PE protcl [id number] IMPRESSION: 1. No evidence of pulmonary embolus. 2. Patchy nodular infiltrates in RIGHT upper lobe anteriorly with a tree-in-bu d configuration likely infectious or inflammatory. 3. Additional diffuse tree-in-bud infiltrates in the RIGHT upper lobe and RIGH T greater than LEFT lower lobes. Recommend correlation for pneumonitis.
[2022-09-30] MEDS: enoxaparin 40 mg/0.4 mL Syringe SUBCUT (10:44)
[2022-09-30] MEDS: azithromycin 250 mg Tablet 500 MG PO (10:45)
[2022-09-30] MEDS: duloxetine 60 mg Capsule PO (10:45)
[2022-09-30] MEDS: lamoTRIgine 100 mg Tablet 300 MG PO ×2 (10:46→19:03)
[2022-09-30] MEDS: predniSONE 20 mg Tablet 40 MG PO (10:46)
[2022-09-30] MEDS: iohexol 350 mg/mL 500 mL Btl (per mL) IV (11:17)
--- NOTE | 2022-09-30 12:04 | P.PN_ITS ---
Subjective Subjective: Patient was seen this morning, continues to complain of shortness of breath, and wheezing, he is a smoker, he is on 2 L, denies any chest pain, palpitations, calf pain, calf swelling, recent travel, recent surgery Vitals/I&O/Wt Last Vital Signs Temp 98.5 F 09/30/22 11:50 Pulse 68 09/30/22 11:50 Resp 18 09/30/22 11:50 BP 145/74 09/30/22 11:50 Pulse Ox 98 09/30/22 11:50 O2 Del Method 09/30/22 11:50 O2 Flow Rate 2 09/30/22 08:55 09/29/22 09/30/22 09/30/22 22:59 06:59 14:59 Intake Total 100 / 100 360 / 360 Balance 100 / 100 360 / 360 Weight last 48 hrs Weight 120.656 kg Physical Exam Const: COMMON NORMALS: no acute distress and patient oriented x3 Resp: COMMON NORMALS: normal respiratory effort, No retractions, No use of accessory muscles and clear to auscultation bilaterally AUSCULTATION: clear to auscultation bilaterally Cardio: COMMON NORMALS: regular rate, regular rhythm, S1 normal heart sound present and S2 normal heart sound present RATE: regular rate RHYTHM: regular rhythm HEART SOUNDS: S1 normal heart sound present and S2 normal heart sound present GI: COMMON NORMALS: Normal to inspection, nondistended, normoactive bowel sounds present and non-tender Extremity: COMMON NORMALS: no pedal edema Neuro: COMMON NORMALS: patient oriented x3 Psych: COMMON NORMALS: mental status grossly normal Data 09/29/22 21:51 09/29/22 21:51 Micro: Microbiology 09/29/22 22:10 Blood Culture - Preliminary Blood SPECIMEN COLLECTED 09/29/22 22:16 Blood Culture - Preliminary Blood SPECIMEN COLLECTED A&P Assessment and plan (1) COPD exacerbation: (2) Hypoxia: Plan Bronchitis related COPD exacerbation Currently requiring 2 L of oxygen which is new requirement Wean oxygen to room air, add azithromycin for anti-inflammatory effect DuoNeb treatment along steroids Wheezing has improved COVID PCR negative D-dimer unremarkable, however given 2 L oxygen requirements will do CT angiogram of the chest Patient is endorsing to marijuana Smokes 2 packs of cigarettes daily basis History of seizure continue antiepileptics, hold BuSpar Cardiac diet DVT prophylaxis on board Full code Attestations Medical Necessity Statement*: Patient requires hospitalization for COPD exacerbation Coding Level of Care Code Acute Magician Helper for [facility] Diagnoses COPD exacerbation J44.1 Hypoxia R09.02
[2022-09-30] MEDS: zonisamide 100 MG Capsule 700 MG PO (13:04)
[2022-09-30] MEDS: cefTRIAXone 1,000 MG in sodium chloride 0.9% (plus) 50 ML 100 MG IV (13:17)
[2022-09-30] MEDS: doxycycline 100 MG in sodium chloride 0.9% (plus) 100 ML IV (14:01)
--- NOTE | 2022-09-30 14:16 | ECG_ITS ---
[facility] Test Date: 2022-09-30 Pat Name: Anders Parisi Department: Room: 278 Gender: Male District Fire Chief: : [id number] Requested By: Peterson Bates Order Number: [id number] Lonnie MD: Abner Garcia M.D. Measurements Intervals [place] Rate: 76 P: 54 AL: 165 QRS: -57 QRSD: 101 T: 17 QT: 376 QTc: 423 Interpretive Statements SINUS RHYTHM LEFT AXIS DEVIATION [QRS AXIS < -30] Compared to ECG 11/10/2015 10:21:45 No significant changes Electronically Signed On 10-01-2022 13:48:25 LOG CHIPPER OPERATOR by Abner Gracia M.D. [id number]
[2022-09-30 15:49] LABS: Troponin(5th) Baseline 6 ng/L (0-15)
--- NOTE | 2022-09-30 16:43 | ECG_ITS ---
[facility] Test Date: 2022-09-30 Pat Name: Anders Parisi Department: Room: 278 Gender: Male Hse Advisor: : 1975 Requested By: Peterson Bates Order Number: [id number] Fleming MD: Abner Garcia M.D. Measurements Intervals [place] Rate: 62 P: 29 DE: 168 QRS: -53 QRSD: 100 T: 12 QT: 384 QTc: 392 Interpretive Statements SINUS RHYTHM LEFT ANTERIOR FASCICULAR BLOCK [QRS AXIS <= -45, QR IN I, RS IN II] Compared to ECG 09/30/2022 14:16:09 Left anterior fascicular block now present Left-axis deviation no longer present Electronically Signed On 10-01-2022 13:53:04 ELECTROLOGIST by Abner Garcia M.D. [email or web address].[employer]/store/[id number]
[2022-09-30 17:47] LABS: Troponin 5 2HR Delta 0 ABS# (0-10)
[2022-09-30 22:43] LABS: Troponin 5 6HR 6.14 ng/L (0-15)
[2022-09-30 23:30] LABS: Troponin 5 6HR Delta 0.14 ng/L (0-12)
[2022-10-01] VITALS (8 sets, daily range): BP systolic 93–129; BP diastolic 61–73; PULSE 52–76; RESP 16–20; TEMP 36.4–37.1; O2SAT 93–98
[2022-10-01] MEDS: acetaminophen 500 mg Tablet PO (00:43)
[2022-10-01] MEDS: doxycycline 100 MG in sodium chloride 0.9% (plus) 100 ML IV ×2 (01:50→13:57)
[2022-10-01 05:54] LABS: Blood Urea Nitrogen 12 mg/dL (6-20); C Reactive Protein 143.5 mg/L (0.0-4.9); Carbon Dioxide 24 mmol/L (22-29); Chloride 107 mmol/L (98-107); Glomerular Filtration Rate 121.4 mL/min (90-130); Glucose 89 mg/dL (65-115); Osmolality Calculated 287 mOsm/kg (285-295); Sodium 139 mmol/L (136-145)
[2022-10-01 06:06] LABS: Anion Gap 12.3 (5-19)
[2022-10-01 06:07] LABS: Potassium 4.3 mmol/L (3.5-5.1)
[2022-10-01] MEDS: enoxaparin 40 mg/0.4 mL Syringe SUBCUT (10:11)
[2022-10-01] MEDS: zonisamide 100 MG Capsule 700 MG PO (10:12)
[2022-10-01] MEDS: duloxetine 60 mg Capsule PO (10:13)
[2022-10-01] MEDS: predniSONE 20 mg Tablet 40 MG PO (10:13)
[2022-10-01] MEDS: lamoTRIgine 100 mg Tablet 300 MG PO ×2 (10:13→18:18)
[2022-10-01] MEDS: cefTRIAXone 1,000 MG in sodium chloride 0.9% (plus) 50 ML 100 MG IV (13:58)
--- NOTE | 2022-10-01 16:16 | P.PN_ITS ---
Subjective Subjective: Patient was seen this morning, he continues to complain of shortness of breath is on 2 L during my examination, has a cough Vitals/I&O/Wt Last Vital Signs Temp 97.5 F L 10/01/22 15:25 Pulse 55 L 10/01/22 15:25 Resp 16 10/01/22 15:25 BP 126/70 10/01/22 15:25 Pulse Ox 95 10/01/22 15:25 O2 Del Method 10/01/22 15:25 O2 Flow Rate 2 09/30/22 20:00 10/01/22 10/01/22 10/01/22 06:59 14:59 22:59 Intake Total 100 / 1810 240 / 240 Balance 100 / 1810 240 / 240 Weight last 48 hrs Weight 120.656 kg Physical Exam Const: COMMON NORMALS: no acute distress and patient oriented x3 Resp: COMMON NORMALS: normal respiratory effort, No retractions, No use of accessory muscles and clear to auscultation bilaterally AUSCULTATION: clear to auscultation bilaterally Cardio: COMMON NORMALS: regular rate, regular rhythm, S1 normal heart sound p resent and S2 normal heart sound present RATE: regular rate RHYTHM: regular rhythm HEART SOUNDS: S1 normal heart sound present and S2 normal heart sound present GI: COMMON NORMALS: Normal to inspection, nondistended, normoactive bowel sounds present and non-tender Extremity: COMMON NORMALS: no pedal edema Neuro: COMMON NORMALS: patient oriented x3 Psych: COMMON NORMALS: mental status grossly normal Data 09/29/22 21:51 10/01/22 04:43 Micro: Microbiology 10/01/22 00:00 Gram Stain - Final Sputum - Expectorated Sputum 09/29/22 22:10 Blood Culture - Preliminary Blood NEGATIVE TO DATE 09/29/22 22:16 Blood Culture - Preliminary Blood NEGATIVE TO DATE A&P Assessment and plan (1) COPD exacerbation: (2) Hypoxia: (3) Pneumonia: Plan Bronchitis related COPD exacerbation, pneumonia Currently requiring 2 L of oxygen which is new requirement Wean oxygen to room air, continue Rocephin, stop azithromycin due to concern for QT prolongation, continue doxycycline Continue DuoNeb, Wheezing has improved COVID PCR negative D-dimer unremarkable CT angiogram 1.? No evidence of pulmonary embolus. 2.? Patchy nodular infiltrates in RIGHT upper lobe anteriorly with a tree-in-bud configuration likely infectious or inflammatory. 3.? Additional diffuse tree-in-bud infiltrates in the RIGHT upper lobe and RIGHT greater than LEFT lower lobes. Recommend correlation for pneumonitis. Patient is endorsing to marijuana Smokes 2 packs of cigarettes daily basis History of seizure continue antiepileptics, hold BuSpar Cardiac diet DVT prophylaxis on board Full code Resume home BuSpar, continue antibiotic therapy, monitor Attestations Medical Necessity Statement*: Patient requires position for hypoxia secondary to pneumonia Coding Level of Care Code Acute Inside Sales Associate for [facility] Fwd Diagnoses COPD exacerbation J44.1 Hypoxia R09.02 Pneumonia J18.9
[2022-10-02] VITALS (9 sets, daily range): BP systolic 109–121; BP diastolic 58–67; PULSE 49–63; RESP 16–18; TEMP 36.4–36.7; O2SAT 92–99
[2022-10-02] MEDS: doxycycline 100 MG in sodium chloride 0.9% (plus) 100 ML IV ×2 (00:38→15:45)
[2022-10-02] MEDS: temazepam 15 mg Capsule PO (01:51)
[2022-10-02] MEDS: enoxaparin 40 mg/0.4 mL Syringe SUBCUT (09:21)
[2022-10-02] MEDS: zonisamide 100 MG Capsule 700 MG PO (09:21)
[2022-10-02] MEDS: lamoTRIgine 100 mg Tablet 300 MG PO ×2 (09:21→18:41)
[2022-10-02] MEDS: predniSONE 20 mg Tablet 40 MG PO (09:22)
[2022-10-02] MEDS: duloxetine 60 mg Capsule PO (09:22)
--- NOTE | 2022-10-02 11:00 | PC.NURSE ---
1010 Patient had seizure type activity witnessed per family. states lasted 30 seconds maybe alittle longer patient awake at this time alert and oriented, alittle sluggish. patient was attempting room air trial taht started at 0945 with sats of 94-95 % on room air. VS stable 1015 DR Bates notified.
[2022-10-02 11:39] LABS: Basophils % 0.5 %; Eosinophils # 0.1 10^3/uL (0.0-0.8); Eosinophils % 0.9 %; Hematocrit 42.7 % (42.0-52.0); Lymphocytes # 2.4 10^3/uL (0.8-4.8); Lymphocytes % 26.5 %; Mean Corpuscular HGB Conc 30.4 g/dL (30.0-36.0); Mean Corpuscular Volume 101.7 fl (80-94); Mean Platelet Volume 8.9 fL (7.4-10.4); Monocytes # 0.4 10^3/uL (0.2-0.9); Monocytes % 4.7 %; Neutrophils # 5.93 10^3/uL (1.8-7.7); Neutrophils % 66.9 %; Nucleated Red Blood Cells % 0 %; Platelet Count 355 10^3/cmm (130-400); Red Cell Distribution Width 13.4 % (12.1-15.1); White Blood Count 8.9 10^3/uL (4.0-10.0)
[2022-10-02] MEDS: gabapentin 400 mg Capsule 800 MG PO ×2 (11:40→18:40)
[2022-10-02] MEDS: BuSPIRONE 10 mg Tablet 20 MG PO ×2 (11:45→22:07)
[2022-10-02] MEDS: CLONazepam 1 mg Tablet PO ×2 (11:45→22:06)
[2022-10-02 11:54] LABS: Alanine Aminotransferase 7 U/L (0-41); Albumin Level 3.3 g/dL (3.5-5.2); Alkaline Phosphatase 79 U/L (40-130); Anion Gap 13.6 (5-19); Aspartate Amino Transferase 7 U/L (0-40); Blood Urea Nitrogen 12 mg/dL (6-20); C Reactive Protein 31.8 mg/L (0.0-4.9); Carbon Dioxide 24 mmol/L (22-29); Chloride 106 mmol/L (98-107); Globulin 3.6 g/dL (1.3-4.6); Glomerular Filtration Rate 104.1 mL/min (90-130); Glucose 106 mg/dL (65-115); Magnesium 1.8 mg/dL (1.7-2.3); Osmolality Calculated 290 mOsm/kg (285-295); Potassium 3.6 mmol/L (3.5-5.1); Sodium 140 mmol/L (136-145); Total Bilirubin 0.2 mg/dL (0.15-1.2); Total Protein 6.9 g/dL (6.6-8.7)
[2022-10-02 11:59] LABS: Procalcitonin 0.05 ng/mL (0-0.5)
--- NOTE | 2022-10-02 13:28 | PM.PN ---
Subjective Subjective: Patient was seen this morning, earlier on the morning, he had a 5-minute seizure, witnessed by nursing staff and family members, he finally came out of seizure, currently seen, no muscle aches or pains, no postictal confusion, no nausea, no vomiting, no aspiration, he is alert oriented x3, his shortness of breath is improved still requiring oxygen Vitals/I&O/Wt Last Vital Signs Temp 98.1 F 10/02/22 12:00 Pulse 54 L 10/02/22 12:00 Resp 18 10/02/22 12:00 BP 109/65 10/02/22 12:00 Pulse Ox 94 10/02/22 12:00 O2 Del Method 10/02/22 11:33 O2 Flow Rate 2 10/01/22 20:57 10/01/22 10/02/22 10/02/22 22:59 06:59 14:59 Intake Total 390 / 630 580 / 1210 660 / 660 Output Total 500 / 500 1080 / 1580 Balance -110 / 130 -500 / -370 660 / 660 Physical Exam Const: COMMON NORMALS: no acute distress and patient oriented x3 Resp: COMMON NORMALS: normal respiratory effort, No retractions, No use of accessory muscles and clear to auscultation bilaterally AUSCULTATION: clear to auscultation bilaterally Cardio: COMMON NORMALS: regular rate, regular rhythm, S1 normal heart sound present and S2 normal heart sound present RATE: regular rate RHYTHM: regular rhythm HEART SOUNDS: S1 normal heart sound present and S2 normal heart sound present GI: COMMON NORMALS: Normal to inspection, nondistended, normoactive bowel sounds present and non-tender Extremity: COMMON NORMALS: no pedal edema Neuro: COMMON NORMALS: patient oriented x3 Psych: COMMON NORMALS: mental status grossly normal Data 10/02/22 11:19 10/02/22 11:19 Micro: Microbiology 10/01/22 00:00 Gram Stain - Final Sputum - Expectorated Sputum A&P Assessment and plan (1) Breakthrough seizure: (2) COPD exacerbation: (3) Hypoxia: (4) Pneumonia: Plan Bronchitis related COPD exacerbation, pneumonia Currently requiring 2 L of oxygen which is new requirement Wean oxygen to room air, continue Rocephin, stop azithromycin due to concern for QT prolongation, continue doxycycline Continue DuoNeb, Wheezing has improved COVID PCR negative D-dimer unremarkable CT angiogram 1.? No evidence of pulmonary embolus. 2.? Patchy nodular infiltrates in RIGHT upper lobe anteriorly with a tree-in-bud configuration likely infectious or inflammatory. 3.? Additional diffuse tree-in-bud infiltrates in the RIGHT upper lobe and RIGHT greater than LEFT lower lobes. Recommend correlation for pneumonitis. Patient is endorsing to marijuana Smokes 2 packs of cigarettes daily basis History of seizure continue antiepileptics, hold BuSpar Cardiac diet DVT prophylaxis on board Full code Resume home BuSpar, continue antibiotic therapy, monitor Breakthrough seizure, seizure precautions, monitor mentation, neurochecks, continue home gabapentin, clonazepam, BuSpar this possibly could be contributing, I have corrected patient's zonisamide dosing, Ativan as needed for breakthrough seizures monitor for the next 24 hours Plan for today continue antibiotic therapy, continue monitor respiratory status had a breakthrough seizure neurochecks, continue home seizure medications monitor for the next 4 hours Attestations Medical Necessity Statement*: Patient requires hospitalization for pneumonia, COPD, breakthrough seizure Coding Level of Care Code Acute Technology Adoption Manager for [facility] Mccray Diagnoses Breakthrough seizure G40.919 COPD exacerbation J44.1 Hypoxia R09.02 Pneumonia J18.9
[2022-10-02] MEDS: cefTRIAXone 1,000 MG in sodium chloride 0.9% (plus) 50 ML 100 MG IV (15:32)
[2022-10-03] VITALS: BP 113/65; PULSE 51; RESP 17; TEMP 36.5; O2SAT 96
--- NOTE | 2022-10-03 02:12 | PC.NURSE ---
This nurse called pharmacy due to dayshift administering antibiotic late. The medication has been re timed in the MAR to get it back on schedule per pharmacy recommendation.
[2022-10-03] MEDS: gabapentin 400 mg Capsule 800 MG PO ×2 (02:23→10:08)
[2022-10-03] MEDS: doxycycline 100 MG in sodium chloride 0.9% (plus) 100 ML IV (02:39)
[2022-10-03 04:00] VITALS: BP 98/55; PULSE 52; RESP 17; TEMP 36.4; O2SAT 97
[2022-10-03 05:28] LABS: Basophils # 0.1 10^3/uL (0.0-0.1); Basophils % 0.5 %; Eosinophils # 0.1 10^3/uL (0.0-0.8); Eosinophils % 0.5 %; Hematocrit 41.6 % (42.0-52.0); Hemoglobin 13.1 g/dL (11.7-16.6); Lymphocytes # 3.4 10^3/uL (0.8-4.8); Lymphocytes % 37.5 %; Mean Corpuscular HGB Conc 31.5 g/dL (30.0-36.0); Mean Corpuscular Hemoglobin 31.1 pg (28.0-34.0); Mean Corpuscular Volume 98.8 fl (80-94); Mean Platelet Volume 8.7 fL (7.4-10.4); Monocytes # 0.5 10^3/uL (0.2-0.9); Monocytes % 5.7 %; Neutrophils # 5.07 10^3/uL (1.8-7.7); Neutrophils % 55.5 %; Nucleated Red Blood Cells % 0 %; Platelet Count 374 10^3/cmm (130-400); Red Blood Count 4.21 10^6/uL (4.1-5.3); Red Cell Distribution Width 13.2 % (12.1-15.1); White Blood Count 9.2 10^3/uL (4.0-10.0)
[2022-10-03] MEDS: zonisamide 100 MG Capsule 300 MG PO (05:30)
[2022-10-03 05:54] LABS: Anion Gap 12.7 (5-19); Blood Urea Nitrogen 14 mg/dL (6-20); Carbon Dioxide 25 mmol/L (22-29); Chloride 108 mmol/L (98-107); Glomerular Filtration Rate 121.4 mL/min (90-130); Glucose 79 mg/dL (65-115); Osmolality Calculated 293 mOsm/kg (285-295); Potassium 3.7 mmol/L (3.5-5.1); Sodium 142 mmol/L (136-145)
[2022-10-03 07:45] VITALS: BP 108/70; PULSE 51; RESP 16; TEMP 36.4; O2SAT 97
[2022-10-03 08:00] VITALS: PULSE 57; RESP 18; O2SAT 97
[2022-10-03] MEDS: predniSONE 20 mg Tablet 40 MG PO (08:53)
[2022-10-03] MEDS: duloxetine 60 mg Capsule PO (08:53)
[2022-10-03] MEDS: lamoTRIgine 100 mg Tablet 300 MG PO (08:53)
[2022-10-03] MEDS: enoxaparin 40 mg/0.4 mL Syringe SUBCUT (08:53)
[2022-10-03] MEDS: BuSPIRONE 10 mg Tablet 20 MG PO (10:08)
[2022-10-03] MEDS: CLONazepam 1 mg Tablet PO (10:08)
--- NOTE | 2022-10-03 10:50 | P.DS_ITS ---
Discharge Providers Date of Admission: 09/30/22 01:07 Date of Discharge: October 03, 2022 Attending Provider at Admission: Roseline Rg MD Attending Provider at Discharge: Peterson Bates MD Primary Care Provider: Sonal Underwood Diagnoses at Discharge Discharge Diagnosis (1) Breakthrough seizure: Status: Acute (2) COPD exacerbation: Status: Acute (3) Hypoxia: Status: Acute (4) Pneumonia: Status: Acute Reason for Visit Reason for Visit: Sent from for low O2 Hospital Course Hospital Course This is a 47-year-old male with a past medical history of anxiety, depression, history of temporal lobe epilepsy, history of COPD, who presents to [facility] for shortness of breath Patient was admitted to [facility] for COPD exacerbation, pneumonia, requiring 2 L, CT of the chest showed patchy nodular infiltrates in the right upper lobe anteriorly with tree-in-bud configuration, additional in the right up per right greater than left lower lobes,. Received broad-spectrum antibiotic therapy, inhaler therapy, oxygen therapy. Patient's sputum cultures show so far show gram-negative rods, will be discharged on cefdinir, with close follow-up primary care provider as outpatient. Discharged on 2 L, butyryl inhaler. Follow-up with pulmonary as outpatient given CT scan findings. Physical Exam Const: COMMON NORMALS: no acute distress and patient oriented x3 Resp: COMMON NORMALS: normal respiratory effort, No retractions, No use of accessory muscles and clear to auscultation bilaterally AUSCULTATION: clear to auscultation bilaterally Cardio: COMMON NORMALS: regular rate, regular rhythm, S1 normal heart sound present and S2 normal heart sound present RATE: regular rate RHYTHM: regular rhythm HEART SOUNDS: S1 normal heart sound present and S2 normal heart sound present GI: COMMON NORMALS: Normal to inspection, nondistended, normoactive bowel sounds present and non-tender Extremity: COMMON NORMALS: no pedal edema Neuro: COMMON NORMALS: patient oriented x3 Psych: COMMON NORMALS: mental status grossly normal Discharge Data Studies Completed and Pending Completed Studies During Hospitalization Category Date Time Status CT angio chest PE protcl [id number] Routine Cat Scan 09/30/22 09:24 Completed CXRP [XR chest 1V portable [id number]] Stat Exams 09/29/22 19:10 Completed Pending at discharge Category Date Time Status Basic Metabolic Panel AM LABS Lab 10/04/22 04:00 Ordered Basic Metabolic Panel AM LABS Lab 10/05/22 04:00 Ordered Blood Culture Stat Lab 09/29/22 22:10 Results Complete Blood Count w/Auto AM LABS Lab 10/04/22 04:00 Ordered Complete Blood Count w/Auto AM LABS Lab 10/05/22 04:00 Ordered Sputum Culture and Gram Stain Routine Lab 10/01/22 00:00 Results Radiology Impressions Chest X-Ray 09/29/22 19:10 IMPRESSION: 1. No acute abnormality demonstrated. 2. There is no interval change from the prior examination. Chest CTA 09/30/22 09:24 IMPRESSION: 1. No evidence of pulmonary embolus. 2. Patchy nodular infiltrates in RIGHT upper lobe anteriorly with a tree-in-bud configuration likely infectious or inflammatory. 3. Additional diffuse tree-in-bud infiltrates in the RIGHT upper lobe and RIGHT greater than LEFT lower lobes. Recommend correlation for pneumonitis. Laboratory Results WBC 9.2 10^3/uL (4.0-10.0) 10/03/22 05:18 RBC 4.21 10^6/uL (4.1-5.3) 10/03/22 05:18 Hgb 13.1 g/dL (11.7-16.6) 10/03/22 05:18 Hct 41.6 % (42.0-52.0) L 10/03/22 05:18 MCV 98.8 fl (80-94) H 10/03/22 05:18 MCH 31.1 pg (28.0-34.0) 10/03/22 05:18 MCHC 31.5 g/dL (30.0-36.0) 10/03/22 05:18 RDW 13.2 % (12.1-15.1) 10/03/22 05:18 Plt Count 374 10^3/cmm (130-400) 10/03/22 05:18 MPV 8.7 fL (7.4-10.4) 10/03/22 05:18 Neut % (Auto) 55.5 % 10/03/22 05:18 Lymph % (Auto) 37.5 % 10/03/22 05:18 Rosebud % (Auto) 5.7 % 10/03/22 05:18 Eos % (Auto) 0.5 % 10/03/22 05:18 Baso % (Auto) 0.5 % 10/03/22 05:18 Neut # (Auto) 5.07 10^3/uL (1.8-7.7) 10/03/22 05:18 Lymph # (Auto) 3.4 10^3/uL (0.8-4.8) 10/03/22 05:18 Rosebud # (Auto) 0.5 10^3/uL (0.2-0.9) 10/03/22 05:18 Eos # (Auto) 0.1 10^3/uL (0.0-0.8) 10/03/22 05:18 Baso # (Auto) 0.1 10^3/uL (0.0-0.1) 10/03/22 05:18 Nucleated RBC % (auto) 0 % 10/03/22 05:18 Total Counted 100 (0-100) 09/29/22 21:51 Atypical Lymphs % 1.0 % (0-5) 09/29/22 21:51 Absolute Neutrophils 10.0 10^3/cmm (1.4-6.5) H 09/29/22 21:51 Segmented Neutrophils 73 % 09/29/22 21:51 Abs Segm Neuts (Man) 10.0 10/cmm (1.6-7.1) H 09/29/22 21:51 Band Neutrophils 0.0 % 09/29/22 21:51 Abs Band Neuts (Man) 0.0 10^3/cmm (0.0-1.2) 09/29/22 21:51 Absolute Lymphocytes 2.3 10^3/cmm (1.2-3.4) 09/29/22 21:51 Lymphocytes (Manual) 16 % 09/29/22 21:51 Monocytes (Manual) 9.0 % 09/29/22 21:51 Absolute Monocytes 1.2 10^3/cmm (0.1-0.6) H 09/29/22 21:51 Eosinophils (Manual) 0 % 09/29/22 21:51 Absolute Eosinophils 0.0 10^3/cmm (0.0-0.7) 09/29/22 21:51 Basophils (Manual) 0.0 % 09/29/22 21:51 Absolute Basophils 0.0 10^3/cmm (0.0-0.2) 09/29/22 21:51 Nucleated RBCs # 0.0 /100WBC 10/03/22 05:18 Platelet Estimate Normal (Normal) 09/29/22 21:51 D-Dimer 0.38 ug/mIFEU (0-0.59) 09/29/22 21:51 Sodium 142 mmol/L (136-145) 10/03/22 05:18 Potassium 3.7 mmol/L (3.5-5.1) 10/03/22 05:18 Chloride 108 mmol/L (98-107) H 10/03/22 05:18 Carbon Dioxide 25 mmol/L (22-29) 10/03/22 05:18 Anion Gap 12.7 (5-19) 10/03/22 05:18 BUN 14 mg/dL (6-20) 10/03/22 05:18 Creatinine 0.7 mg/dL (0.7-1.2) 10/03/22 05:18 GFR Calculation 121.4 mL/min (90-130) 10/03/22 05:18 Glucose 79 mg/dL (65-115) 10/03/22 05:18 Calculated Osmolality 293 mOsm/kg (285-295) 10/03/22 05:18 Lactic Acid 0.6 mmol/L (0.5-2.2) 09/29/22 21:51 Calcium 9.0 mg/dL (8.5-10.5) 10/03/22 05:18 Magnesium 1.8 mg/dL (1.7-2.3) 10/02/22 11:19 Total Bilirubin 0.2 mg/dL (0.15-1.2) 10/02/22 11:19 AST 7 U/L (0-40) 10/02/22 11:19 ALT 7 U/L (0-41) 10/02/22 11:19 Alkaline Phosphatase 79 U/L (40-130) 10/02/22 11:19 Troponin T Baseline 6 ng/L (0-15) 09/30/22 14:35 Troponin T 120 Minute 6.00 ng/L (0-15) 09/30/22 16:30 Delta Troponin T 0 ABS# (0-10) 09/30/22 16:30 Troponin T Hi Sens 6Hr 6.14 ng/L (0-15) 09/30/22 21:40 Troponin T Hi Sens 6Hr Delta 0.14 ng/L (0-12) 09/30/22 21:40 C-Reactive Protein 31.8 mg/L (0.0-4.9) H 10/02/22 11:19 Total Protein 6.9 g/dL (6.6-8.7) 10/02/22 11:19 Albumin 3.3 g/dL (3.5-5.2) L 10/02/22 11:19 Globulin 3.6 g/dL (1.3-4.6) 10/02/22 11:19 Vitamin B12 338 pg/mL (232-1245) 09/29/22 21:51 Procalcitonin 0.05 ng/mL (0-0.5) 10/02/22 11:19 Coronavirus 229E (PCR) Not detected (NOT DETECT) 09/30/22 02:42 Influenza Type A Ag negative (Negative) 09/29/22 20:43 Influenza Type B Ag negative (Negative) 09/29/22 20:43 SARS-CoV-2 (PCR) Not detected (NOT DETECT) 09/30/22 02:42 SARS-CoV-2 Ag (Rapid) Negative (Negative) 09/29/22 20:43 Vitals Last Vital Signs Temp 97.6 F 10/03/22 07:45 Pulse 57 L 10/03/22 08:00 Resp 18 10/03/22 08:00 BP 108/70 10/03/22 07:45 Pulse Ox 97 10/03/22 08:00 O2 Del Method 10/03/22 08:00 O2 Flow Rate 2 10/03/22 08:00 Discharge Plan Discharge Patient Disposition: Home Condition: Stable Prescriptions: New prednisone 20 mg Tablet 40 mg PO DAILY 3 Days Qty: 6 0RF cefdinir 300 mg capsule 300 mg PO BID 5 Days Qty: 10 0RF albuterol sulfate 90 mcg/actuation HFA aerosol inhaler 1 inh inhalation Q6H PRN (Reason: shortness of breath or wheezing) Qty: 8.5 0RF benzonatate 100 mg Capsule 100 mg PO Q8H PRN (Reason: Cough) 7 Days Qty: 21 0RF Continued acetaminophen [Tylenol 8 Hour] 650 mg tablet extended release 650 mg PO Q8H PRN (Reason: fever or pain) cyanocobalamin (vitamin B-12) 1,000 mcg capsule 2,000 mcg PO DAILY cholecalciferol (vitamin D3) 1,250 mcg (50,000 unit) capsule 1,250 mcg PO DAILY gabapentin 800 mg tablet 800 mg PO TID Qty: 270 3RF albuterol sulfate 90 mcg/actuation HFA aerosol inhaler 2 puff inhalation QID PRN (Reason: Shortness Of Breath) duloxetine 60 mg capsule,delayed release(DR/EC) 60 mg PO DAILY Qty: 30 2RF buspirone 10 mg tablet 20 mg PO BID Qty: 120 0RF cenobamate 200 mg tablet 400 mg PO DAILY Qty: 60 3RF Rx Instructions: Take 2 tablets once daily. clonazepam [Klonopin] 1 mg tablet 1 mg PO BID Qty: 60 5RF lamotrigine 150 mg tablet See Rx Instructions .ROUTE .COMPLEX Qty: 120 3RF Dose Instruction: Take 2 tablets by mouth twice daily Rx Instructions: Take 2 tablets by mouth twice daily zonisamide 100 mg capsule See Rx Instructions .ROUTE .COMPLEX Rx Instructions: 300 mg orally in the morning / 400 mg orally in the evening pravastatin 80 mg Tablet 80 mg PO BEDTIME Discharge Orders: Discharge Order (Routine); Ordered 10/03/22 Ordered By: Peterson Bates Referrals: Carline Shin MD [Physician] - 1 week Datar,Lavelle Wilkes MD [Physician] - 1 month Sonal Underwood PA [Primary Care Provider] - Discharge Diet: Cardiac Discharge Activity: Resume usual activity Patient Instructions: Opioid Safety Activity Restrictions/Additional Instructions: - Please take antibiotics as prescribed -Hydrate well -Tylenol for fevers -If any worsening symptomatology go to the emergency room -For breakthrough seizures please follow-up with Dr. Shin Discharge Attestations Time Spent in Discharge Care*: less than 30 min Quality Metrics Clinical Quality Measures [ No reported AMI, CVA or VTE this stay] Coding Level of Care Code Acute Chg FW DC note Diagnoses Breakthrough seizure G40.919 COPD exacerbation J44.1 Hypoxia R09.02 Pneumonia J18.9
[2022-10-03 11:14] VITALS: BP 128/68; PULSE 55; RESP 16; TEMP 36.3; O2SAT 91
[2022-10-03 12:20] VITALS: BP 128/68; PULSE 55; RESP 16; TEMP 36.3; O2SAT 91
== END 2022-10-03 12:21 | disposition home or self-care (01) ==
LOC: ER 09-30 01:03 → MEDSURG 09-30 01:08
PROVIDERS: Emergency Medicine; Admitting Provider Internal Medicine; Emergency Provider Physician Assistant; PCP Physician Assistant; Visit Provider Family Medicine
DX: G40.919 Epilepsy, unspecified, intractable, without status epilepticus (principal); J44.1 Chronic obstructive pulmonary disease with (acute) exacerbation; R09.02 Hypoxemia; J18.9 Pneumonia, unspecified organism; F41.9 Anxiety disorder, unspecified; F32.9 Major depressive disorder, single episode, unspecified; J44.9 Chronic obstructive pulmonary disease, unspecified; Z86.16 Personal history of COVID-19; F17.210 Nicotine dependence, cigarettes, uncomplicated
CPT/HCPCS: 36415; 71045; 71275; 80048; 80053; 82607; 83605; 83735; 84145; 84484; 85007; 85025; 85027; 85378; 86140; 87040; 87070; 87077; 87186; 87205; 87426; 87635; 87641; 87804; 90471; 90686; 93005; 94640; 94664; 96365; 96366; 96367; 96372; 99285; G0378; J0696; J1650; J3490; J7512; Q0144; Q9967

== ENCOUNTER → 2022-11-01 11:48 | Outpatient (BNVA) | payer MEDICARE, SELFPAY | PROVIDERS: PCP Physician Assistant; Visit Provider Specialist | DX: G40.109 Localization-related (focal) (partial) symptomatic epilepsy and epileptic syndromes with simple partial seizures, not intractable, without status epilepticus (principal); Z96.82 Presence of neurostimulator; J44.9 Chronic obstructive pulmonary disease, unspecified; F17.210 Nicotine dependence, cigarettes, uncomplicated; Z79.899 Other long term (current) drug therapy | CPT/HCPCS: 99214 ==

== ENCOUNTER → 2023-10-02 10:24 | Outpatient (BNVA) | payer MEDICARE, SELFPAY | PROVIDERS: PCP Physician Assistant; Visit Provider Nurse Practitioner | DX: Z20.822 Contact with and (suspected) exposure to COVID-19 (principal); U07.1 COVID-19 | CPT/HCPCS: 87426 ==

== ENCOUNTER 2024-06-04 12:21 | Outpatient (CLI) | payer MEDICARE, SELFPAY ==
--- NOTE | 2024-06-04 12:26 | CT_ITS ---
WS: [id number] CT CHEST, ABDOMEN AND PELVIS WITH CONTRAST HISTORY: UNEXPLAINED WEIGHT LOSS TECHNIQUE: Contiguous 5 mm axial imaging performed through the chest, abdomen and pelvis with IV cont rast, oral contrast has been provided. Coronal and sagittal reformats chest. Coronal and sagittal ref ormats through the abdomen and pelvis. All CT scans at [facility] use at least one of these d ose optimization techniques: automated exposure control; mA and/or kV adjustment per patient size (in cludes targeted exams where dose is matched to clinical indication); or iterative reconstruction. CONTRAST: Omnipaque 350; 100 mL IV. DLP: 973.79 mGy.cm COMPARISON: CT 06/28/2019, 10/26/2023, 09/30/[address]: 1 cm spiculation LEFT upper lobe, image 29 of series 4 has been present since 06/08/2011. Th ere are additional scattered, subcentimeter pulmonary nodules which are also stable. Some of these suárez ve been present since 2010. No mass or pneumonia. No mediastinal or hilar adenopathy. Normal size aor ta and pulmonary artery. Heart is normal size. Small hiatal hernia. No pericardial or pleural effusio ns. Vagal nerve stimulator over the LEFT upper thorax. Abdomen CT: Hepatic steatosis. Liver is 6 top normal size. Normal size spleen. Normal portal vein. No rmal gallbladder. Normal pancreas. Simple cyst upper pole RIGHT kidney 1.6 cm. There are a few additi onal too small to characterize cortical hypodensities. No solid mass or obstruction. Mild atheroscler osis aorta. Stomach is not distended. No small bowel obstruction. Mild constipation. Normal appendix. No adenopathy. Pelvic CT: Well-distended urinary bladder. There is a small amount of fluid in the pelvis which is ab normal in a male patient. This fluid was not present on prior studies. CT/CT chest abdpel w/*[id number] IMPRESSION: 1. There are a few scattered pulmonary nodules and spiculations which have bee n present since 2010. No pneumonia. 2. No mediastinal or hilar adenopathy. 3. Mild hepatic steatosis. 4. There there is a very small amount of free fluid in the pelvis of uncertain etiology. This is considered abnormal in a male patient. 5. No adjacent adenopathy within the pelvis. No renal obstruction. 6. RIGHT renal cysts and too small to characterize scattered hypodensities in the remaining kidney.
[2024-06-04] MEDS: iohexol 350 mg/mL 500 mL Btl (per mL) PO (13:08)
[2024-06-04] MEDS: iohexol 350 mg/mL 500 mL Btl (per mL) IV (13:44)
== END 2024-06-04 12:22 | disposition home or self-care (01) ==
LOC: RAD 12:23
PROVIDERS: PCP Physician Assistant; Visit Provider Physician Assistant
DX: R63.4 Abnormal weight loss (principal); R91.8 Other nonspecific abnormal finding of lung field; K76.0 Fatty (change of) liver, not elsewhere classified; N28.1 Cyst of kidney, acquired
CPT/HCPCS: 71260; 74177; Q9967

== ENCOUNTER → 2024-06-27 12:16 | Outpatient (BNVA) | payer MEDICARE, SELFPAY | PROVIDERS: PCP Physician Assistant; Visit Provider Specialist | DX: G40.109 Localization-related (focal) (partial) symptomatic epilepsy and epileptic syndromes with simple partial seizures, not intractable, without status epilepticus (principal); Z96.89 Presence of other specified functional implants; F17.200 Nicotine dependence, unspecified, uncomplicated; J44.9 Chronic obstructive pulmonary disease, unspecified | CPT/HCPCS: 99214 ==

== ENCOUNTER 2024-10-18 09:08 | Outpatient (CLI) | payer MEDICARE, SELFPAY ==
--- NOTE | 2024-10-18 09:19 | CT_ITS ---
WS: [id number] CT PARANASAL SINUSES HISTORY: FACE INJURY TECHNIQUE: Contiguous 2.5 mm axial images obtained through the sinuses. Images are reconstructed in s agittal and coronal planes. All CT scans at [facility] use at least one of these dose optimiz ation techniques: automated exposure control; mA and/or kV adjustment per patient size (includes targ eted exams where dose is matched to clinical indication); or iterative reconstruction. DLP: 392.88 mGy.cm COMPARISON: None available. Frontal sinuses: Mild mucoperiosteal thickening in the frontal sinuses. No air-fluid levels. Sphenoid sinus: Negative. Ethmoid sinuses: Mild bilateral mucoperiosteal thickening predominantly in the anterior ethmoid air c ells. Maxillary sinus: Bilateral mucous retention cysts in the maxillary sinuses. No air-fluid levels. No o sseous destruction. Ostiomeatal unit: Patent. Moderate deviation nasal septum to the LEFT with a 5 mm bony spur extending to the LEFT. Zygomatic arches are intact. No nasal bone fractures. Mandibular condyles are intact. No orbit fractu re. Lucency through the anterior nasal spine is highly suspicious for fracture. Extensive dental olivia es in the maxilla. Partial imaging of the brain demonstrates an area of decreased attenuation in the RIGHT parietal lobe CT/CT sinus wo con* [id number] IMPRESSION: 1. No air-fluid levels in the paranasal sinuses. 2. Mild to moderate diffuse chronic mucoperiosteal thickening in the paranasal sinuses. 3. Nondisplaced fracture of the anterior nasal spine. 4. No nasal bone fracture. 5. Maxillary dental caries.
== END 2024-10-18 09:09 | disposition home or self-care (01) ==
PROVIDERS: PCP Physician Assistant; Visit Provider Physician Assistant
DX: S02.2XXD Fracture of nasal bones, subsequent encounter for fracture with routine healing (principal); K11.6 Mucocele of salivary gland; J34.2 Deviated nasal septum; R93.89 Abnormal findings on diagnostic imaging of other specified body structures; K02.9 Dental caries, unspecified; X58.XXXD Exposure to other specified factors, subsequent encounter
CPT/HCPCS: 70486

== ENCOUNTER → 2024-12-25 11:12 | Outpatient (BNVA) | payer MEDICARE, SELFPAY | PROVIDERS: PCP Physician Assistant; Visit Provider Specialist | DX: G40.109 Localization-related (focal) (partial) symptomatic epilepsy and epileptic syndromes with simple partial seizures, not intractable, without status epilepticus (principal) | CPT/HCPCS: 99214 ==